=== PATIENT | male | born 1985 | race African-American/Black ===

== ENCOUNTER 2019-02-02 15:03 | Emergency (ER) | payer SELFPAY ==
[~2019-02-02] VITALS: Ht 177.8 cm; Wt 104.5 kg
[~2019-02-02 15:03] MED LIST: AMOXICILLIN 50500 MG PO; NORCO 325 MG-51 TAB PO
[2019-02-02 15:09] VITALS: BP 189/110; TEMP 98.8
[2019-02-02] MEDS ORDERED: CEPHALEXIN500 M1 PO (15:32)
[2019-02-02 17:18] VITALS: PULSE 89
== END 2019-02-02 17:18 | disposition home or self-care (01) ==
LOC: COL.ER 15:03
DX: S61.210A Laceration without foreign body of right index finger without damage to nail, initial encounter (principal); Z23 Encounter for immunization; W26.0XXA Contact with knife, initial encounter; Y92.59 Other trade areas as the place of occurrence of the external cause

== ENCOUNTER → 2019-02-15 | Emergency (ER) | payer SELFPAY ==
[~2019-02-15] MED LIST changes: +CEPHALEXIN500 M1 PO
[2019-02-15 13:53] VITALS: BP 141/100; PULSE 85; TEMP 97.8
== END ==
LOC: COL.ER 13:23
DX: S61.211D Laceration without foreign body of left index finger without damage to nail, subsequent encounter (principal); X58.XXXD Exposure to other specified factors, subsequent encounter

== ENCOUNTER 2020-06-19 15:44 | Emergency (ER) | payer OTHER ==
[~2020-06-19] VITALS: Ht 177.8 cm; Wt 92.7 kg
[2020-06-19 16:00] VITALS: BP 137/100; TEMP 98.1
[2020-06-19] MEDS ORDERED: MOTRIN 800800 MG/TAB PO (17:00)
[2020-06-19 17:32] VITALS: PULSE 95
== END 2020-06-19 17:29 | disposition home or self-care (01) ==
LOC: COL.ER 15:44
DX: M23.92 Unspecified internal derangement of left knee (principal)

== ENCOUNTER 2022-02-15 12:46 | Emergency (ER) | payer SELFPAY ==
[~2022-02-15] VITALS: Ht 175.3 cm; Wt 80.5 kg
[~2022-02-15 12:46] MED LIST changes: +MOTRIN 800800 MG/TAB PO
[2022-02-15 13:12] VITALS: BP 135/85; PULSE 97; TEMP 98
[2022-02-15] MEDS ORDERED: NORCO 325 MG-51 TAB PO (14:12)
[2022-02-15] MEDS ORDERED: FLEXERIL 1010 MG/TAB PO (14:12)
== END 2022-02-15 14:35 | disposition home or self-care (01) ==
LOC: COL.ER 12:46
DX: M54.50 Low back pain, unspecified (principal); G89.29 Other chronic pain

== ENCOUNTER 2022-09-05 09:41 | Emergency (ER) | payer SELFPAY ==
[~2022-09-05] VITALS: Ht 175.3 cm; Wt 84.1 kg
[~2022-09-05 09:41] MED LIST changes: +FLEXERIL 1010 MG/TAB PO
[2022-09-05 09:55] VITALS: TEMP 98.4
[2022-09-05 10:37] LABS: BASO % 0.3 % (0.0-2.0); GRAN # 5.7 K/mm3 (1.4-6.5); GRAN % 80.7 % (42.2-75.2); HEMATOCRIT 45.1 % (42.0-52.0); LYMPH # 0.7 K/mm3 (1.2-3.4); LYMPH % 9.3 % (20.0-51.0); MEAN CELL VOLUME 84 fl (80.0-100.0); MEAN CORPUSCULAR HEMOGLOBIN 28 pg (27-31); MEAN CORPUSCULAR HGB CONC 33 g/dl (33.0-37.0); MEAN PLATELET VOLUME 11.7 fl (7.4-10.4); MONO # 0.7 K/mm3 (0.1-0.6); MONO % 9.6 % (1.7-9.3); PLATELET COUNT 194 K/mm3 (130-400); RED BLOOD COUNT 5.37 M/mm3 (4.20-5.60); REDCELL DISTRIBUTION WIDTH-CV 14.3 % (11.5-14.5)
[2022-09-05 11:06] LABS: ALANINE AMINOTRANSFERASE 148 U/L (0-55); ALBUMIN 4.7 gm/dL (3.5-5.0); ALCOHOL(ethanol),MEDICAL < 10 mg/dL (0-10); ALKALINE PHOSPHATASE 60 U/L (40-150); ANION GAP 17 mmol/L (7-16); AST,SGOT 135 U/L (5-34); BLOOD UREA NITROGEN 8 mg/dL (9-21); C-REACTIVE PROTEIN 0.48 mg/dL (0.00-0.50); CARBON DIOXIDE 23 mmol/L (22-29); CHLORIDE 99 mmol/L (98-107); CREATININE, serum 0.96 mg/dL (0.72-1.25); GLUCOSE 83 mg/dL (70-99); LIPASE 297 U/L (8-78); POTASSIUM 4.4 mmol/L (3.5-4.5); SODIUM 139 mmol/L (136-145); TOTAL PROTEIN 8.2 gm/dL (6.2-8.1)
[2022-09-05 11:44] LABS: COLLECTION METHOD CLEAN CATCH
[2022-09-05 12:02] LABS: MUCOUS Present (NOT PRESENT); SQUAMOUS EPITHELIAL 0-2 /hpf (0-10); URINE BACTERIA None Seen /hpf (NONE SEEN); URINE RBC 0-2 /hpf (0-2)
[2022-09-05 12:04] LABS: URINE APPEARANCE Clear (CLEAR/HAZY); URINE COLOR Amber (YELLOW)
[2022-09-05 12:05] LABS: PH 5.5 (5.0-8.5); URINE BLOOD Negative (NEGATIVE); URINE GLUCOSE Negative (NEGATIVE); URINE KETONE 4+ (NEGATIVE); URINE NITRATE Negative (NEGATIVE); URINE PROTEIN(semi-quant) 2+ (NEGATIVE); URINE UROBILINOGEN 0.2 E.U/dL (0.2-1.0)
[2022-09-05] MEDS ORDERED: NORCO 325 MG-51 TAB PO (12:45)
[2022-09-05] MEDS ORDERED: ZOFRAN ODT4 MG PO (12:45)
[2022-09-05 12:51] VITALS: BP 163/91; PULSE 84
== END 2022-09-05 13:01 | disposition home or self-care (01) ==
LOC: COL.ER 09:41
PROVIDERS: Emergency Medicine; Physician Assistant
DX: K85.90 Acute pancreatitis without necrosis or infection, unspecified (principal); Z28.310 Unvaccinated for COVID-19
CPT/HCPCS: J1885; J2405; J7030; Q9967

== ENCOUNTER 2023-08-25 03:44 | Emergency (ER) | payer OTHER ==
[~2023-08-25] VITALS: Ht 175.3 cm; Wt 75.0 kg
[~2023-08-25 03:44] MED LIST changes: +ZOFRAN ODT4 MG PO
[2023-08-25 04:12] VITALS: BP 144/99; PULSE 86; TEMP 98.1
[2023-08-25] MEDS ORDERED: NORCO 325 MG-51 TAB PO (05:09)
== END 2023-08-25 05:29 | disposition home or self-care (01) ==
LOC: COL.ER 03:44
DX: M25.562 Pain in left knee (principal); M79.89 Other specified soft tissue disorders; Z28.310 Unvaccinated for COVID-19
CPT/HCPCS: J1885

== ENCOUNTER 2023-11-26 10:27 | Emergency (ER) | payer OTHER ==
[~2023-11-26] VITALS: Ht 175.3 cm; Wt 72.7 kg
[2023-11-26 10:41] VITALS: BP 115/78; PULSE 108; TEMP 99
== END 2023-11-26 12:00 | disposition home or self-care (01) ==
LOC: COL.ER 10:27
DX: H69.81 Other specified disorders of Eustachian tube, right ear (principal); J06.9 Acute upper respiratory infection, unspecified; F17.210 Nicotine dependence, cigarettes, uncomplicated